=== PATIENT | female | born 1970 | race Caucasian/White ===

== ENCOUNTER 2016-11-21 10:22 | Emergency (ER) | payer OTHER ==
[2016-11-21 11:19] VITALS: BP 111/66
--- NOTE | 2016-11-21 11:39 | ED Physician Documentation ---
PD HPI NECK PAIN - Stated complaint Stated Complaint: NECK PAIN - Chief complaint Chief Complaint: General - History obtained from History obtained from: Patient - History of Present Illness Timing - onset: How many days ago (4-5 days of increasing pain right side of neck and right side of scalp/head without injury. ROM of the neck hurts some but pain is there with resting. Tender to the touch. Feels some malaise. No fevers. No URI symptoms.) Timing - duration: Days Timing - details: Gradual onset, Still present Location: Upper, Right Quality: Pain, Aching. No: Spasm Associated symptoms: No: Fever, Weakness, Numbness, Incontinent of urine Improves with: No: Rest Worsened by: Movement, Palpation. No: Twisting Contributing factors: No: Lifting, Twisting, Trauma Similar symptoms before: Has not had sx before Recently seen: Not recently seen Review of Systems Constitutional: reports: Myalgias. denies: Fever, Chills Eyes: denies: Loss of vision, Decreased vision, Photophobia Ears: denies: Loss of hearing, Ear pain GI: denies: Nausea, Vomiting, Diarrhea Neurologic: denies: Focal weakness, Numbness PD PAST MEDICAL HISTORY - Past Medical History Past Medical History: No Cardiovascular: None Respiratory: None Neuro: None Endocrine/Autoimmune: None - Past Surgical History Past Surgical History: No - Present Medications Home Medications: Ambulatory Orders Medication Instructions Recorded Confirmed Acyclovir 800 mg PO 5XD #30 tablet 11/21/16 Dexamethasone [Decadron] 4 mg PO DAILY #5 tablet 11/21/16 Methocarbamol [Robaxin] 500 mg PO Q6H PRN #25 tablet 11/21/16 Naproxen 375 mg PO BID #20 tablet 11/21/16 Oxycodone HCl/Acetaminophen 1 each PO Q6H PRN #20 tablet 11/21/16 [Percocet 5-325 mg Tablet] - Allergies Allergies/Adverse Reactions: Allergies Allergy/AdvReac Type Severity Reaction Status Date / Time No Known Drug Allergies Allergy Verified 11/21/16 10:40 - Social History Does the pt smoke?: No Smoking Status: Never smoker Does the pt drink ETOH?: No Does the pt have substance abuse?: No PD ED PE NORMAL - Vitals Vital signs reviewed: Yes - General General: Alert and oriented X 3, Well developed/nourished - HEENT HEENT: Atraumatic, PERRL, EOMI, Ears normal, Pharynx benign - Neck Neck: Supple, no meningeal sign, No adenopathy, Other (tenderness at right upper neck and occipital scalp to touch and pressure. Faint 2 small red patches at upper neck right side with early vesicular look. Rest of scalp without rash but is tender right side. ) - Cardiac Cardiac: RRR, No murmur - Respiratory Respiratory: Clear bilaterally - Abdomen Abdomen: Soft, Non tender Results - Vitals Vitals: Vital Signs - 24 hr 11/21/16 11/21/16 10:36 11:17 Temperature 37.4 C 36.7 C Heart Rate 90 89 Respiratory 16 18 Rate Blood Pressure 119/84 H 111/66 O2 Saturation 97 97 Oxygen O2 Source Room air PD MEDICAL DECISION MAKING - ED course Complexity details: considered differential (significant pain with skin tenderness and 2 small red patches at upper neck with faint vesicle appearance, which I think is early shingles. ), d/w patient Departure - Departure Disposition: 01 Home, Self Care Clinical Impression: Neck pain, Occipital neuritis Shingles outbreak Qualifiers: Herpes zoster complications: without complications Qualified Code(s): B02.9 - Zoster without complications Condition: Stable Record reviewed to determine appropriate education?: Yes Instructions: ED Neck Pain No Trauma, ED Shingles Prescriptions: Acyclovir 800 mg PO 5XD #30 tablet Dexamethasone [Decadron] 4 mg PO DAILY #5 tablet Methocarbamol [Robaxin] 500 mg PO Q6H PRN #25 tablet PRN Reason: Spasms Naproxen 375 mg PO BID #20 tablet Oxycodone HCl/Acetaminophen [Percocet 5-325 mg Tablet] 1 each PO Q6H PRN #20 tablet PRN Reason: Pain Comments: This may be just muscular with some nerve irritation of the occipital nerve. However there is couple of small red spots in the distribution that look like early shingles. We will treated that way with antiviral medicine as well as anti-inflammatory steroid muscle relaxant and pain medicine. Continue some ibuprofen or naproxen at home 2-3 times a day. If he develops a more rash in that area, that would be consistent with this. Recheck if not improved over the next several days or sooner if worsening or other symptoms develop. Discharge Date/Time: 11/21/16 12:35
[2016-11-21] MEDS ORDERED: ACYCLOVIR 200 MG CAPSULE PO STA (12:10)
[2016-11-21] MEDS ORDERED: DEXAMETHASONE 10 MG/ML VIAL PO STA (12:10)
[2016-11-21] MEDS ORDERED: DEXAMETHASONE 10 MG/ML VIAL ONE (12:19)
[2016-11-21] MEDS ORDERED: ACYCLOVIR 200 MG CAPSULE PO ONE (12:19)
[2016-11-21] MEDS ORDERED: CHERRY SYRUP 10 ML UDC PO ONE (12:20)
== END 2016-11-21 12:35 | disposition home or self-care (01) ==
LOC: ED 10:22
DX: M54.2 Cervicalgia (principal); M54.81 Occipital neuralgia; B02.9 Zoster without complications
CPT/HCPCS: 99283; A9270

== ENCOUNTER 2016-12-23 15:15 | Observation (INO) | payer OTHER ==
--- NOTE | 2016-12-23 15:27 | PREOP HISTORY & PHYSICAL ---
DATE OF ADMISSION/SURGERY: 12/23/2016 HISTORY OF PRESENT ILLNESS: The patient is a 46-year-old female, 6, para 3, AB 3, one of whic h was an ectopic. The patient has a 72-hour history of right lower quadrant pain. She was seen in the emergency department yesterday on the , an ultrasound showed a 4.8 cm hemorrhagic right ovarian c yst. Since that time, the pain has gotten substantially worse. The patient is unable to eat and has b een vomiting. Her urine hCG in the ED was negative. Her hemoglobin was 13.8. Her last menstrual perio d was 11/24/2016 and she is currently due for her period and she is currently actively pursuing pregn steve. ALLERGIES: IV CONTRAST DYE, BUT APPARENTLY NOT TOPICAL IODINE. MEDICATIONS: The patient was given tramadol, which she thinks she had a significant reaction In the e mergency department. SOCIAL HISTORY: The patient is a nonsmoker and denies drugs or alcohol. PAST HISTORY: She had a laparoscopic salpingostomy in 1989. 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 FAMILY HISTORY: Father had prostate cancer. Mother skin cancer. Maternal grandmother, breast cancer. Maternal grandfather pancreatic cancer. REVIEW OF SYSTEMS: GASTROINTESTINAL: The patient was noted to have elevated bilirubin of 1.4 yesterday and she relates t hat this has been noted previously. GENITOURINARY: The patient had recurrent bladder infections in and was noted to have a nodu le on her lower pole of her right kidney on CT scan yesterday. PHYSICAL EXAMINATION: VITAL SIGNS: Blood pressure 110/64. GENERAL: The patient is in obvious distress. HEENT: Within normal limits. NECK: No thyromegaly. LUNGS: Clear. HEART: Regular rhythm. There is no murmur or gallop. ABDOMEN: Soft. There is marked right lower quadrant tenderness with rebound tenderness. Bowel sounds are normal. EXTREMITIES: Normal. NEUROLOGIC: Grossly intact. PELVIC: No pelvic exam is done at this time. IMPRESSION: 1. Hemorrhagic right ovarian cyst. 2. Acute abdomen. PLAN: Dr. Triplett will perform laparoscopy, possible ovarian cystectomy, possible right salpingo-oophore ctomy. These possibilities have been explained to the patient. She understands and agrees to proceed. 15:9:00 JOB #: [id number] EXT JOB #:[id number]
[2016-12-23] MEDS ORDERED: ceFAZolin 2 GM/50 ML 2 GM/50 ML BAG IV ONE (15:29)
[2016-12-23] MEDS ORDERED: LACTATED RINGERS 1,000 ML IV ONE ×2 (15:39→17:30)
[2016-12-23 15:46] LABS: BASOPHILS # (AUTO) 0.1 10^3/uL (0.0-0.1); EOSINOPHILS % (AUTO) 0.3 %; HCT - HEMATOCRIT 40.7 % (37.0-47.0); HGB - HEMOGLOBIN 13.8 g/dL (12.0-16.0); LYMPHOCYTES % (AUTO) 20.1 %; MEAN CORPUSCULAR HEMOGLOBIN 30.3 pg (27.0-31.0); MEAN CORPUSCULAR HGB CONC 33.9 g/dL (32.0-36.0); MEAN CORPUSCULAR VOLUME 89.5 fL (81.0-99.0); MEAN PLATELET VOLUME 7.5 fL (7.9-10.8); MONOCYTES # (AUTO) 0.5 10^3/uL (0.0-1.0); NEUTROPHILS # (AUTO) 7.3 10^3/uL (1.5-6.6); NEUTROPHILS % (AUTO) 73.6 %; RED BLOOD COUNT 4.55 10^6/uL (4.20-5.40); RED CELL DISTRIBUTION WIDTH 13.6 % (12.0-15.0); UNCORRECTED WHITE BLOOD COUNT 9.9 x10^3/uL; WHITE BLOOD COUNT 9.9 x10^3/uL (4.8-10.8)
[2016-12-23 15:54] LABS: CALCIUM 9.4 mg/dL (8.5-10.3); CREATININE 0.7 mg/dL (0.4-1.0); POTASSIUM 3.4 mmol/L (3.5-5.0)
[2016-12-23] MEDS ORDERED: BUPIVACAINE 0.25%-EPI 1:200000 PF 30 ML VIAL SUBQ ONE ×2 (16:55)
[2016-12-23] MEDS ORDERED: NEOSTIGMINE 1 MG/1 ML 10 ML MDV IVP ONE (17:30)
[2016-12-23] MEDS ORDERED: MIDAZOLAM 2 MG/2 ML VIAL IVP ONE (17:30)
[2016-12-23] MEDS ORDERED: DEXAMETHASONE 4 MG/ML VIAL IVP ONE (17:30)
[2016-12-23] MEDS ORDERED: LIDOCAINE-MPF 2% 5 ML VIAL IM ONE (17:30)
[2016-12-23] MEDS ORDERED: fentaNYL 100 MCG/2 ML VIAL IVP ONE (17:30)
[2016-12-23] MEDS ORDERED: GLYCOPYRROLATE 1 MG/5 ML VIAL IVP ONE (17:30)
[2016-12-23] MEDS ORDERED: ROCURONIUM 50 MG/5 ML VIAL IVP ONE (17:30)
[2016-12-23] MEDS ORDERED: ONDANSETRON 4 MG/2 ML VIAL IVP ONE (17:30)
[2016-12-23] MEDS: HYDROmorphone 1 MG/ML SYRINGE ONE ×3 (18:19→19:15)
[2016-12-23] MEDS ORDERED: MEPERIDINE 50 MG/ML SYRINGE ONE (18:29)
[2016-12-23] MEDS ORDERED: ACETAMINOPHEN 1,000 MG/100 ML 100 ML IV ONE (18:55)
[2016-12-23] MEDS ORDERED: ONDANSETRON 4 MG/2 ML VIAL IVP PRN (19:10)
[2016-12-23] MEDS: HYDROmorphone PCA 10 MG IV PRN (20:10)
[2016-12-23] MEDS: ACETAMINOPHEN 500 MG TABLET PO SCH (20:16)
[2016-12-23] MEDS: LACTATED RINGERS 1,000 ML IV SCH (20:32)
[2016-12-23 20:34] LABS: BILIRUBIN,URINE NEGATIVE (NEGATIVE)
[2016-12-23 20:44] LABS: UR CULTURE IF IND NOT INDICATED; WBC,URINE 0-3 /HPF (0-5)
[2016-12-23] MEDS: SIMETHICONE CHEW 80 MG TABLET PO SCH (21:41)
[2016-12-23] MEDS: DOCUSATE SODIUM 100 MG CAPSULE PO SCH (21:41)
[2016-12-24] MEDS: ACETAMINOPHEN 500 MG TABLET PO SCH ×2 (03:47→12:35)
[2016-12-24] MEDS: LACTATED RINGERS 1,000 ML IV SCH (03:48)
[2016-12-24 05:23] LABS: BASOPHILS # (AUTO) 0.1 10^3/uL (0.0-0.1); BASOPHILS % (AUTO) 0.5 %; EOSINOPHILS # (AUTO) 0.1 10^3/uL (0.0-0.7); EOSINOPHILS % (AUTO) 0.4 %; HCT - HEMATOCRIT 41.2 % (37.0-47.0); HGB - HEMOGLOBIN 13.6 g/dL (12.0-16.0); LYMPHOCYTES # (AUTO) 1.7 10^3/uL (1.5-3.5); LYMPHOCYTES % (AUTO) 11.4 %; MEAN CORPUSCULAR HEMOGLOBIN 30.1 pg (27.0-31.0); MEAN CORPUSCULAR VOLUME 91.2 fL (81.0-99.0); MEAN PLATELET VOLUME 8.1 fL (7.9-10.8); MONOCYTES # (AUTO) 0.6 10^3/uL (0.0-1.0); MONOCYTES % (AUTO) 4.4 %; NEUTROPHILS # (AUTO) 12.1 10^3/uL (1.5-6.6); NEUTROPHILS % (AUTO) 83.3 %; RED BLOOD COUNT 4.52 10^6/uL (4.20-5.40); RED CELL DISTRIBUTION WIDTH 13.4 % (12.0-15.0); UNCORRECTED WHITE BLOOD COUNT 14.5 x10^3/uL; WHITE BLOOD COUNT 14.5 x10^3/uL (4.8-10.8)
[2016-12-24] MEDS: SIMETHICONE CHEW 80 MG TABLET PO SCH (05:48)
--- NOTE | 2016-12-24 06:23 | OPERATIVE REPORT ---
DATE OF SURGERY: 12/23/2016 00:00:00 PREOPERATIVE DIAGNOSIS: A 5 cm right ovarian cyst, possible torsion. POSTOPERATIVE DIAGNOSIS: Right hemorrhagic cyst with evidence of inflammation. The right tube was very tenuous with a very thin wall. The left tube was patent with evidence of a normal ovary. PROCEDURE: Diagnostic laparoscopy with a right salpingo-oophorectomy and chromopertubation. SURGEON: Luis Antonio Triplett MD. REGISTERED ART THERAPIST: Gabe Carbajal MD. ANESTHESIA: General via endotracheal tube, Hal Chu CRNA. FINDINGS: Inflamed right ovary with a very thin wall of the right tube. COMPLICATIONS: None. ESTIMATED BLOOD LOSS: 100 mL. FINDINGS: Upon entering the abdominal cavity, there was no evidence of any injury. There was no free fluid in the belly at this time. The right ovary did not appear to be torsed; however, there was evidence of a hemorrhagic right ovarian cyst, as well as evidence of inflammation on the cervix. The right tube was entered. The right tube was very tenuous with the methylene blue being very close to the surface. The left tube and ovary appeared to be free of disease. DESCRIPTION OF PROCEDURE: Following adequate endotracheal anesthesia, the patient was placed in the dorsal lithotomy position in [facility]. She was then prepped and draped in the usual fashion. A timeout was performed, which the patient was identified, concerns discussed, allergies, as well as antibiotics being assured. The procedure was then commenced. A speculum was placed in the vagina, cervix visualized, grasped with a single-toothed tenaculum. The cervical manipulator was placed in the cervical os. At this point , the finish rolls operator's gloves were changed and then a stab wound was made in the subumbilical area following local anesthesia with 0.25% Marcaine with epinephrine. A 5 mm trocar was placed with a first pass without difficulty. The trocars were placed, both in the left and right lower quadrants, following local anesthesia with 0.25% Marcaine with epinephrine. The pelvis was inspected with previously mentioned finding. The left tube and ovary appeared to be free of disease. The uterus appeared to be free of disease. The right tube and ovary was very inflamed, a 5 cm cyst. The surface showed evidence of irritation and erythema. Performing the chromopertubation, the left tube appeared to be open and patent. The right tube appeared to be patent with evidence of the serosa being very thin with methylene blue appearing to come right up against this area. This continued for a distance of at least 2-3 cm. The appendix appeared to be normal, as well as the liver and gallbladder. At this point, the right tube was grasped. The infundibulopelvic ligaments were doubly cauterized and then transected. The meso-ovarica was then cauterized and transected. This was carried all the way up to the cornu of the uterus, which was cauterized, transected, and then the ovary was removed. At this point, a 12 mm trocar was placed in the right lower quadrant through the previous site and an EndoCatch was placed. The ovary and tube were then placed in this withdrawn from the abdominal wall without difficulty. The incision site was inspected. There was no evidence of any bleeding. At this point, the right 12 mm port was closed utilizing 0 Vicryl with a Ed-Santo. There was evidence of good closure at this time. The subumbilical port was removed and then the CO2 was allowed to escape as much as possible through the left lower quadrant site. These sites were then all closed utilizing 4-0 Monocryl subcuticular and then Dermabond was applied. The instruments were then removed from the vagina. The patient tolerated the procedure well and was taken to recovery in stable condition. Sponge and needle counts were correct. JOB #: [id number] EXT JOB #:[id number] JOEY
[2016-12-24] MEDS: HYDROmorphone PCA 10 MG IV PRN (06:40)
[2016-12-24] MEDS: DOCUSATE SODIUM 100 MG CAPSULE PO SCH (08:45)
--- NOTE | 2016-12-24 08:49 | PROVIDER PROGRESS NOTE ---
Subjective - General Admit Date: 12/23/16 Procedure Date: 12/23/16 Post Op Days: 1 Procedure Performed: Laproscopic RSO - Review of Systems Wound/Incisions: positive: Healing well HEENT: positive: No symptoms Pulmonary: positive: No symptoms Cardiovascular: positive: No symptoms Gastrointestinal: positive: No symptoms Genitourinary: positive: No symptoms Musculoskeletal: positive: No symptoms - Other Other Information/Narrative: Pain 03/27 Objective - Patient Data Reviewed Vital Signs: Yes Vital Signs: Vital Signs x48h Temp Pulse Resp BP Pulse Ox 12/24/16 08:43 16 12/24/16 07:31 36.7 C 65 16 104/66 93 12/24/16 04:24 36.7 C 63 17 101/61 96 12/24/16 02:00 16 Weight: Weight 12/22/16 12/23/16 12/24/16 23:59 23:59 23:59 Weight (kg) 82.6 kg Intake & Output: Intake and Output Totals x24h 12/22/16 12/23/16 12/24/16 23:59 23:59 23:59 Intake Total 1508.333 Output Total 600 900 Balance -600 608.333 - Lab Results Lab Results: 12/24/16 05:10 12/23/16 15:31 Other Lab Results: Lab Results x24hrs 12/24/16 12/23/16 12/23/16 Range/Units 05:10 20:25 15:31 WBC 14.5 H (4.8-10.8) x10^3/uL RBC 4.52 (4.20-5.40) 10^6/uL Hgb 13.6 (12.0-16.0) g/dL Hct 41.2 (37.0-47.0) % MCV 91.2 (81.0-99.0) fL MCH 30.1 (27.0-31.0) pg MCHC 33.0 (32.0-36.0) g/dL RDW 13.4 (12.0-15.0) % Plt Count 318 (130-450) 10^3/uL MPV 8.1 (7.9-10.8) fL Neut # 12.1 H (1.5-6.6) 10^3/uL Lymph # 1.7 (1.5-3.5) 10^3/uL [place] # 0.6 (0.0-1.0) 10^3/uL Eos # 0.1 (0.0-0.7) 10^3/uL Baso # 0.1 (0.0-0.1) 10^3/uL Absolute Nucleated RBC 0.01 x10^3/uL Nucleated RBC % 0.0 /100WBC Sodium (135-145) mmol/L Potassium (3.5-5.0) mmol/L Chloride (101-111) mmol/L Carbon Dioxide (21-32) mmol/L Anion Gap (6-13) BUN (6-20) mg/dL Creatinine (0.4-1.0) mg/dL Estimated GFR (MDRD) (>89) Glucose (70-100) mg/dL Calcium (8.5-10.3) mg/dL Urine Color YELLOW Urine Clarity CLEAR (CLEAR) Urine pH 6.0 (5.0-7.5) PH Ur Specific [place] 1.010 (1.002-1.030) Urine Protein NEGATIVE (NEGATIVE) mg/dL Urine Glucose (UA) NEGATIVE (NEGATIVE) mg/dL Urine Ketones NEGATIVE (NEGATIVE) mg/dL Urine Occult Blood TRACE-LYSE (NEGATIVE) Urine Nitrite NEGATIVE (NEGATIVE) Urine Bilirubin NEGATIVE (NEGATIVE) Urine Urobilinogen 0.2 (NORMAL) (NORMAL) E.U./dL Ur Leukocyte Esterase NEGATIVE (NEGATIVE) Urine RBC 0-5 (0-5) /HPF Urine WBC 0-3 (0-5) /HPF Ur Squamous Epith Cells FEW Squamous (<= Few) Urine Bacteria None Seen (None Seen) /HPF Urine Culture Comments NOT INDICATED Blood Type O POSITIVE Antibody Screen NEGATIVE 12/23/16 12/23/16 Range/Units 15:31 15:31 WBC 9.9 (4.8-10.8) x10^3/uL RBC 4.55 (4.20-5.40) 10^6/uL Hgb 13.8 (12.0-16.0) g/dL Hct 40.7 (37.0-47.0) % MCV 89.5 (81.0-99.0) fL MCH 30.3 (27.0-31.0) pg MCHC 33.9 (32.0-36.0) g/dL RDW 13.6 (12.0-15.0) % Plt Count 352 (130-450) 10^3/uL MPV 7.5 L (7.9-10.8) fL Neut # 7.3 H (1.5-6.6) 10^3/uL Lymph # 2.0 (1.5-3.5) 10^3/uL [place] # 0.5 (0.0-1.0) 10^3/uL Eos # 0.0 (0.0-0.7) 10^3/uL Baso # 0.1 (0.0-0.1) 10^3/uL Absolute Nucleated RBC 0.00 x10^3/uL Nucleated RBC % 0.0 /100WBC Sodium 137 (135-145) mmol/L Potassium 3.4 L (3.5-5.0) mmol/L Chloride 102 (101-111) mmol/L Carbon Dioxide 23 (21-32) mmol/L Anion Gap 12.0 (6-13) BUN 10 (6-20) mg/dL Creatinine 0.7 (0.4-1.0) mg/dL Estimated GFR (MDRD) 90 (>89) Glucose 98 (70-100) mg/dL Calcium 9.4 (8.5-10.3) mg/dL Urine Color Urine Clarity (CLEAR) Urine pH (5.0-7.5) PH Ur Specific [place] (1.002-1.030) Urine Protein (NEGATIVE) mg/dL Urine Glucose (UA) (NEGATIVE) mg/dL Urine Ketones (NEGATIVE) mg/dL Urine Occult Blood (NEGATIVE) Urine Nitrite (NEGATIVE) Urine Bilirubin (NEGATIVE) Urine Urobilinogen (NORMAL) E.U./dL Ur Leukocyte Esterase (NEGATIVE) Urine RBC (0-5) /HPF Urine WBC (0-5) /HPF Ur Squamous Epith Cells (<= Few) Urine Bacteria (None Seen) /HPF Urine Culture Comments Blood Type Antibody Screen - Current Medications Current Medications: Current Medications Generic Name Dose Route Start Last Admin Trade Name Freq PRN Reason Stop Dose Admin Acetaminophen 1,000 mg 12/23/16 20:00 12/24/16 03:47 Tylenol PO 1,000 mg Q8H TARIK Administration Docusate Sodium 100 mg 12/23/16 21:00 12/24/16 08:45 Colace 100mg Capsule PO 100 mg BID TARIK Administration Hydromorphone HCl 0 mg 12/23/16 19:15 12/24/16 06:40 Dilaudid Moth Proofer (Use Moth Proofer Order Set) IV 10 mg [employer]MOD[employer] SUPPORT WORKER PRN Administration PAIN Protocol Lactated Ringer's 1,000 mls @ 125 mls/hr 12/23/16 20:00 12/24/16 03:48 Lr IV 125 mls/hr .Q8H TARIK Administration Simethicone 80 mg 12/23/16 22:00 12/24/16 05:48 Mylicon PO 80 mg TID TARIK Administration - Physical Exam Wound/Incisions: positive: Healing well, Dressing dry and intact General Appearance: positive: No acute distress, Alert Respiratory: positive: Chest non-tender, No respiratory distress, Breath sounds nml Cardiovascular: positive: Regular rate & rhythm, No murmur Abdomen: positive: Nml bowel sounds, No distention, Tenderness (2/10 RLQ Markedly improved from yeater/last night) Back: negative: CVA tenderness (R), CVA tenderness (L) Skin: positive: Color nml, No rash, Warm, Dry Impression/Plan - Problem List Problem List: S/P RSO. Discussed fertility issues. Good left tube but small left ovary, compatible with age. Recommended against flying Wednesday. Pt feels very pressed to go home for medical appt for son.
[2016-12-24 11:08] VITALS: BP 109/53
== END 2016-12-24 11:30 | disposition home or self-care (01) ==
LOC: SDS 15:15 → OBS 19:10
PROVIDERS: ADMIT Obstetrics & Gynecology; ATTEND Obstetrics & Gynecology
PROC: 0UT54ZZ Resection of Right Fallopian Tube, Percutaneous Endoscopic Approach (ICD-10-PCS; 2016-12-23)
PROC: 3E0P3KZ Introduction of Other Diagnostic Substance into Female Reproductive, Percutaneous Approach (ICD-10-PCS; 2016-12-23)
PROC: 0UT04ZZ Resection of Right Ovary, Percutaneous Endoscopic Approach (ICD-10-PCS; principal; 2016-12-23 15:15)
DX: N83.201 Unspecified ovarian cyst, right side (principal); B02.9 Zoster without complications; Q87.40 Marfan syndrome, unspecified; M54.81 Occipital neuralgia; N28.89 Other specified disorders of kidney and ureter
CPT/HCPCS: 36415; 58350; 58661; 80048; 81001; 85025; 86850; 86900; 86901; 88305; A9270; J0131; J0690; J1170; J7120; 87086